=== PATIENT | male | born 1965 ===

== ENCOUNTER 2017-04-15 14:05 | Emergency (ER) | payer OTHER ==
[2017-04-15 14:09] VITALS: BP 124/74; PULSE 86; RESP 16; TEMP 98.3; O2SAT 100
--- NOTE | 2017-04-15 14:14 | ED PDOC ---
Lower Extremity Pain/Injury Time Seen by Provider: 04/15/17 14:10 Chief Complaint (Nursing): Lower Extremity Problem/Injury Chief Complaint (Provider): Lower Extremity Problem/Injury History Per: Patient History/Exam Limitations: no limitations Onset/Duration Of Symptoms: Mins (Prior to Arrival) Current Symptoms Are (Timing): Still Present Additional Complaint(s): 51 y/o male presents to the ED for evaluation of right knee pain s/p slip and fall on ice today. Patient notes that he is able to walk and denies pain or any other injuries. Past Medical History Reviewed: Historical Data, Nursing Documentation, Vital Signs Vital Signs: Last Vital Signs Temp 98.3 F 04/15/17 14:07 Pulse 86 04/15/17 14:07 Resp 16 04/15/17 14:07 BP 124/74 04/15/17 14:07 Pulse Ox 100 04/15/17 14:07 - Family History Family History: States: Unknown Family Hx - Home Medications Home Medications: Ambulatory Orders Medication Instructions Recorded Ibuprofen [Motrin] 600 mg PO Q8 PRN #15 tab 04/15/17 - Allergies Allergies/Adverse Reactions: Allergies Allergy/AdvReac Type Severity Reaction Status Date / Time No Known Allergies Allergy Verified 04/15/17 14:06 Review of Systems ROS Statement: Except As Marked, All Systems Reviewed And Found Negative (As per HPI, otherwise negative) Musculoskeletal: Positive for: Other (Evaluation of the Right knee after slipping on ice today) Physical Exam - Reviewed Nursing Documentation Reviewed: Yes Vital Signs Reviewed: Yes - Physical Exam Appears: Positive for: Well, Non-toxic, No Acute Distress Head Exam: Positive for: ATRAUMATIC, NORMAL INSPECTION, NORMOCEPHALIC Skin: Positive for: Normal Color, Warm, Dry Eye Exam: Positive for: Normal appearance ENT: Positive for: Normal ENT Inspection Neck: Positive for: Normal, Painless ROM, Supple Cardiovascular/Chest: Positive for: Regular Rate, Rhythm. Negative for: Murmur Respiratory: Positive for: Normal Breath Sounds. Negative for: Respiratory Distress Gastrointestinal/Abdominal: Positive for: Normal Exam Back: Positive for: Normal Inspection Extremity: Positive for: Normal ROM. Negative for: Tenderness (right knee), Deformity, Swelling (or erythema) Neurologic/Psych: Positive for: Alert, Oriented (x3) - ECG O2 Sat by Pulse Oximetry: 100 (RA) Pulse Ox Interpretation: Normal Medical Decision Making Medical Decision Making: Time: 14:10 Plan: Motrin 600mg PO Time: 14:20 Upon provider reevaluation patient is feeling better, is medically stable, and requires no further treatment in the ED at this time. Patient will be home with Rx for Motrin 600mg PO. Counseling was provided and all questions were answered regarding diagnosis and need for follow up with PMD. There is agreement to discharge plan. Return if symptoms persist or worsen. Scribe Attestation: Documented by Vik Saenz acting as a scribe for DIXON Joseph. Scribe Attestation: All medical record entries made by the Scribe were at my direction and personally dictated by me. I have reviewed the chart and agree that the record accurately reflects my personal performance of the history, physical exam, medical decision making, and the department course for this patient. I have also personally directed, reviewed, and agree with the discharge instructions and disposition. Disposition - Clinical Impression Clinical Impression: Knee pain - Patient ED Disposition Is Patient to be Admitted: No - Disposition Referrals: [facility] [Outside] Disposition: Routine/Home Disposition Time: 14:20 Condition: FAIR Prescriptions: Ibuprofen [Motrin] 600 mg PO Q8 PRN #15 tab PRN Reason: Pain, Moderate (4-7) Instructions: Knee Pain (ED) Forms: [employer] [facility] (Mosotho)
== END 2017-04-15 14:33 | disposition home or self-care (01) ==
LOC: H.ER 14:05
DX: M25.561 Pain in right knee (principal)

== ENCOUNTER 2018-06-22 09:07 | Emergency (ER) | payer OTHER ==
[2018-06-22 09:09] VITALS: BMI 25.1
[2018-06-22 09:11] VITALS: BP 118/66; PULSE 80; RESP 20; TEMP 98.2; O2SAT 100
--- NOTE | 2018-06-22 09:32 | ED PDOC ---
HPI: Back Time Seen by Provider: 06/22/18 09:14 Chief Complaint (Nursing): Back Pain History Per: Patient Onset/Duration Of Symptoms: Days (1) Current Symptoms Are (Timing): Still Present Quality Of Discomfort: Aching Severity: Moderate Previous Symptoms: Back Pain Associated Symptoms: None Exacerbating Factor(s): Movement Additional Complaint(s): Low back pain across lower back, aching, non radiating after lifting heavy object last night. No weakness or parasthesias. Past Medical History Vital Signs: Last Vital Signs Temp 98.2 F 06/22/18 09:09 Pulse 80 06/22/18 09:09 Resp 20 06/22/18 09:09 BP 118/66 06/22/18 09:09 Pulse Ox 100 06/22/18 09:09 - Medical History PMH: No Chronic Diseases - Family History Family History: States: Unknown Family Hx - Home Medications Home Medications: Ambulatory Orders Medication Instructions Recorded Cyclobenzaprine [Cyclobenzaprine 10 mg PO TID #12 tab 06/22/18 HCl] Naproxen [Naprosyn] 500 mg PO Q12H #20 tab 06/22/18 - Allergies Allergies/Adverse Reactions: Allergies Allergy/AdvReac Type Severity Reaction Status Date / Time No Known Allergies Allergy Verified 04/15/17 14:06 Review of Systems Gastrointestinal: Negative for: Abdominal Pain Genitourinary Male: Negative for: Incontinence Musculoskeletal: Positive for: Back Pain Neurological: Negative for: Weakness, Numbness Physical Exam - Physical Exam Appears: Positive for: Non-toxic, Uncomfortable Skin: Positive for: Normal Color, Warm, DRY Back: Positive for: Normal Inspection, Vertebral Tenderness, Muscle Spasm (Lumbar area bilat) Neurological/Psych: Positive for: Awake, Alert, Normal Tone. Negative for: Motor/Sensory Deficits - ECG O2 Sat by Pulse Oximetry: 100 - Progress Re-evaluation Time: 11:10 Condition: Improved Disposition - Clinical Impression Clinical Impression: Low back pain - Patient ED Disposition Is Patient to be Admitted: No Counseled Patient/Family Regarding: Diagnosis, Need For Followup, Rx Given - Disposition Referrals: [facility] [Outside] Disposition: Routine/Home Disposition Time: 11:11 Condition: FAIR Prescriptions: Cyclobenzaprine [Cyclobenzaprine HCl] 10 mg PO TID #12 tab Naproxen [Naprosyn] 500 mg PO Q12H #20 tab Instructions: Low Back Pain in Adults Forms: [facility] (Chinese)
[2018-06-22] MEDS ORDERED: Acetaminophen IV 1,000 MG in IV SUPPLIES 0 ML IVPB SCH (10:30)
== END 2018-06-22 11:35 | disposition home or self-care (01) ==
LOC: H.ER 09:07
DX: M54.5 Low back pain (principal)
CPT/HCPCS: 96372; 99283; J0131; J1885